=== PATIENT | male | born 1955 | race American Indian/Alaskan Native ===

== ENCOUNTER 2018-10-19 06:56 | Emergency (ER) | payer MEDICAID ==
[2018-10-19 07:22] VITALS: O2SAT 98
[2018-10-19 08:20] LABS: BASO # 0.1 K/uL (0.0-0.2); BASO % 1.1 % (0.0-2.0); EOS # 0.1 K/uL (0.0-0.7); EOS % 1.5 % (0.0-4.0); LYMPH # 3.5 K/uL (1.0-4.3); LYMPH % 37.8 % (20.0-40.0); MEAN CELL VOLUME 90.9 fl (80.0-94.0); MEAN CORPUSCULAR HEMOGLOBIN 30.2 pg (27.0-31.0); MEAN CORPUSCULAR HGB CONC 33.3 g/dL (33.0-37.0); MONO # 0.7 K/uL (0.0-0.8); MONO % 7.3 % (0.0-10.0); NEUT # 4.8 K/uL (1.8-7.0); NEUT % 52.3 % (50.0-75.0); NRBC % 0.1 % (0.0-0.0); RBC 4.97 Mil/uL (4.40-5.90); RED CELL DISTRIBUTION WIDTH 14.9 % (11.5-14.5); WHITE BLOOD COUNT 9.3 K/uL (4.8-10.8)
--- NOTE | 2018-10-19 08:20 | ED PDOC ---
Lower Extremity Pain/Injury Time Seen by Provider: 10/19/18 07:09 Chief Complaint (Nursing): Lower Extremity Problem/Injury Chief Complaint (Provider): Right Foot Swelling History Per: Patient History/Exam Limitations: no limitations Onset/Duration Of Symptoms: Days Current Symptoms Are (Timing): Still Present Additional Complaint(s): 62 year male who is HIV positive presents to the ED for an evaluation of right foot swelling and pain. 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 He states he soaked his foot in Epsom salt without any relief. De nies fever, chills, nausea or vomiting. PMD: Dr. Moreno Past Medical History Reviewed: Historical Data, Nursing Documentation, Vital Signs Vital Signs: Last Vital Signs Temp Pulse 82 10/19/18 07:14 Resp BP 161/102 H 10/19/18 07:14 Pulse Ox 98 10/19/18 07:14 - Medical History PMH: Back Problems, CAD, Depression, Deep Vein Thrombosis, HIV, HTN, Hypercholesterolemia, Hyperlipidemia, Peripheral Edema (poor circulation) Denies: Chronic Kidney Disease - Surgical History Surgical History: Coronary Stent Other surgeries: 2nd digit amputation - Family History Family History: States: Unknown Family Hx - Social History Current smoker - smoking cessation education provided: Yes (Light Smoker < 10 Cigarettes Daily) Alcohol: None Drugs: Denies - Immunization History Hx Tetanus Toxoid Vaccination: No Hx Influenza Vaccination: No Hx Pneumococcal Vaccination: No - Home Medications Home Medications: Ambulatory Orders Medication Instructions Recorded Atazanavir Sulfate [Reyataz] 300 mg PO DAILY 08/28/13 Clopidogrel Hydrogen Sulfate 75 mg PO DAILY 08/28/13 [Plavix] Emtricitabine/Tenofovir Diso 200 - 300 mg PO DAILY 08/28/13 [Truvada 200 MG-300 MG] Mirtazapine [Remeron] 15 mg PO HS 08/28/13 Oxycodone Hydrochloride 30 mg PO TID 08/28/13 Ritonavir [Norvir] 100 mg PO DAILY 08/28/13 Vitamin B Complex & Vitamin C 1 tab PO QPM 08/28/13 [Strovite] amLODIPine [Norvasc] 5 mg PO DAILY 08/28/13 Acetaminophen/Oxycodone Hydr 1 tab PO Q6H PRN #8 tab 06/30/14 [Percocet 325 mg-5 mg] Cyclobenzaprine HCl [Flexeril] 10 mg PO HS #7 tab 06/30/14 Alprazolam [Xanax] 1 mg PO BID 11/07/14 Patient's Own Control Med 20 mg PO PRN 11/07/14 [Patient's Own Control Medication] Sulindac 200 mg PO DAILY 11/07/14 Sulfamethoxazole/Trimethopri 1 tab PO BID #20 tab 06/03/15 [Bactrim Ds 800 mg-160 mg] Amoxicillin/Clavulanate [Augmentin 1 tab PO BID #20 tab 10/19/18 875 MG-125 MG] Naproxen [Naprosyn] 500 mg PO BID PRN #20 tablet 10/19/18 - Allergies Allergies/Adverse Reactions: Allergies Allergy/AdvReac Type Severity Reaction Status Date / Time No Known Allergies Allergy Unverified 08/28/13 11:05 Review of Systems ROS Statement: Except As Marked, All Systems Reviewed And Found Negative Constitutional: Negative for: Fever, Chills Gastrointestinal: Negative for: Nausea, Vomiting, Abdominal Pain Musculoskeletal: Positive for: Foot Pain (right) Physical Exam - Reviewed Nursing Documentation Reviewed: Yes Vital Signs Reviewed: Yes - Physical Exam Appears: Positive for: Well, Non-toxic, No Acute Distress Head Exam: Positive for: ATRAUMATIC, NORMAL INSPECTION, NORMOCEPHALIC Skin: Positive for: Normal Color, Warm, Dry. Negative for: Rash Eye Exam: Positive for: EOMI, Normal appearance, PERRL Neck: Positive for: Normal, Painless ROM, Supple. Negative for: Decreased ROM Cardiovascular/Chest: Positive for: Regular Rate, Rhythm. Negative for: Murmur Respiratory: Positive for: Normal Breath Sounds. Negative for: Decreased Breath Sounds, Wheezing, Respiratory Distress Extremity: Positive for: Normal ROM, Pedal Edema (Peripheral ), Deformity (after amputation of 2nd right digit), Other (driness on right calf). Negative for: Calf Tenderness Neurologic/Psych: Positive for: Alert, Oriented (x3). Negative for: Motor/Sensory Deficits - Laboratory Results Result Diagrams: 10/19/18 08:11 10/19/18 08:11 - ECG O2 Sat by Pulse Oximetry: 98 (RA) Pulse Ox Interpretation: Normal Medical Decision Making Medical Decision Making: Time: 725 Initial Plan: CMP CBC w/ Differential Erythrocyte sedimentation rate Right Foot 3 Views [RAD] IV insertion Reevaluation [id number] Call was placed to drill press hand to discuss case --- -- Scribe Attestation: Documented by Bhupinder Banegas, acting as a scribe for Nichol Chand MD. Provider Scribe Attestation: All medical record entries made by the Scribe were at my direction and personally dictated by me. I have reviewed the chart and agree that the record accurately reflects my personal performance of the history, physical exam, medical decision making, and the department course for this patient. I have also personally directed, reviewed, and agree with the discharge instructions and disposition. 9.45a - patient seen by podiatry. Advised outpatient followup Disposition - Clinical Impression Clinical Impression: Toe infection - Patient ED Disposition Is Patient to be Admitted: No Doctor Will See Patient In The: Office Counseled Patient/Family Regarding: Diagnosis, Need For Followup, Rx Given - Disposition Referrals: Bakari Clark DPM [[facility]] - Disposition: Routine/Home Disposition Time: 09:45 Condition: STABLE Prescriptions: Amoxicillin/Clavulanate [Augmentin 875 MG-125 MG] 1 tab PO BID #20 tab Naproxen [Naprosyn] 500 mg PO BID PRN #20 tablet PRN Reason: Pain, Moderate (4-7) Instructions: Cellulitis (Skin Infection), Adult (DC) Forms: [employer] ([place]an) - POA Present On Arrival: None
[2018-10-19 08:34] LABS: ALB/GLOB RATIO 1.1 (1.0-2.1); ALBUMIN 4.3 g/dL (3.5-5.0); ALT/SGPT 31 U/L (21-72); AST/SGOT 26 U/L (17-59); BLOOD UREA NITROGEN 10 mg/dl (9-20); CALCIUM 9.3 mg/dL (8.4-10.2); GFR NON-AFRICAN AMERICAN > 60
--- NOTE | 2018-10-19 09:24 | CP.PCM.CON ---
History of Present Illness - History of Present Illness History of Present Illness: Podiatry consult note fro Dr. Perez 62 year male patient who is HIV positive presents to the ED for an evaluation of right foot swelling and pain, which started about 1 week ago. He states he soaked his foot in Epsom salt without any relief. Denies fever, chills, nausea or vomiting. Patient states he has hx of lower extremity infection, which is how he lost his second digit to the right. Patient states his Systems Admin is Dr. Bakari Clark. PMD: Dr. Moreno PMH: Back Problems, CAD, Depression, Deep Vein Thrombosis, HIV, HTN, Hypercholesterolemia, Hyperlipidemia, Peripheral Edema (poor circulation) Denies: Chronic Kidney Disease Surgical History: Coronary Stent, 2nd digit amputation Social History: Current smoker Review of Systems - Review of Systems All systems: reviewed and no additional remarkable complaints except Review of Systems: As per HPI Past Patient History - Past Medical History & Family History Past Medical History?: Yes - Past Social History Alcohol: None Drugs: Denies - CARDIAC Hx Hypercholesterolemia: Yes Hx Hypertension: Yes Hx Peripheral Edema: Yes (poor circulation) - PULMONARY Hx Respiratory Disorders: No - NEUROLOGICAL Hx Neurological Disorder: No - HEENT Hx HEENT Problems: No - RENAL Hx Chronic Kidney Disease: No - ENDOCRINE/METABOLIC Hx Endocrine Disorders: No - HEMATOLOGICAL/ONCOLOGICAL Hx Human Immunodeficiency Virus (HIV): Yes - INTEGUMENTARY Hx Dermatological Problems: No - MUSCULOSKELETAL/RHEUMATOLOGICAL Hx Back Pain: Yes Hx Falls: No - GASTROINTESTINAL Hx Gastrointestinal Disorders: No - GENITOURINARY/GYNECOLOGICAL Hx Genitourinary Disorders: No - PSYCHIATRIC Hx Depression: Yes - SURGICAL HISTORY Hx Coronary Stent: Yes - ANESTHESIA Hx Anesthesia: Yes Meds Home Medications: Home Medication List Medication Instructions Recorded Confirmed Type Amoxicillin/Clavulanate [Augmentin 1 tab PO BID #20 tab 10/19/18 Rx 875 MG-125 MG] Naproxen [Naprosyn] 500 mg PO BID PRN #20 tablet 10/19/18 Rx Allergies/Adverse Reactions: Allergies Allergy/AdvReac Type Severity Reaction Status Date / Time No Known Allergies Allergy Unverified 08/28/13 11:05 Physical Exam - Constitutional Appears: Well, Non-toxic, No Acute Distress - Head Exam Head Exam: ATRAUMATIC, NORMOCEPHALIC - Extremities Exam Additional comments: Right Lower Extremity VASC: DP and PT palpable, CFT less than 3 x seconds X 4, TG warm to warm, lateral aspect of foot, positive +1 pitting edema noted to the dorsum of the right foot DERM: positive edema and erythema noted to the dorso-lateral aspect of the right foot, no open lesions, no clinical signs of infection, no malodor, no IDM, plantar xerosis noted, NEURO: grossly intact ORTHO: amputation noted of the 2nd digit, pain on palpation to the 5th digit, and pain with range of motion of the 5th MPTJ, no posterior calf pain, MSK 5/5 - Neurological Exam Neurological exam: Alert, Oriented x3 - Psychiatric Exam Psychiatric exam: Normal Affect, Normal Mood Results - Vital Signs Recent Vital Signs: Last Vital Signs Temp Pulse 82 10/19/18 07:14 Resp BP 161/102 H 10/19/18 07:14 Pulse Ox 98 10/19/18 08:59 - Labs Result Diagrams: 10/19/18 08:11 10/19/18 08:11 Labs: Laboratory Results - last 24 hr 10/19/18 10/19/18 08:11 08:11 WBC 9.3 RBC 4.97 Hgb 15.0 Hct 45.1 MCV 90.9 D MCH 30.2 MCHC 33.3 RDW 14.9 H Plt Count 253 MPV 8.0 Neut % (Auto) 52.3 Lymph % (Auto) 37.8 Carter % (Auto) 7.3 Eos % (Auto) 1.5 Baso % (Auto) 1.1 Neut # (Auto) 4.8 Lymph # (Auto) 3.5 Carter # (Auto) 0.7 Eos # (Auto) 0.1 Baso # (Auto) 0.1 Sodium 137 Potassium 4.1 Chloride 104 Carbon Dioxide 21 L Anion Gap 16 BUN 10 Creatinine 1.1 Est GFR ( Amer) > 60 Est GFR (Non-Af Amer) > 60 Random Glucose 110 Calcium 9.3 Total Bilirubin 0.8 AST 26 ALT 31 Alkaline Phosphatase 165 H Total Protein 8.4 H Albumin 4.3 Globulin 4.1 H Albumin/Globulin Ratio 1.1 Assessment & Plan - Assessment and Plan (Free Text) Assessment: 62 y/o male patient seen and evaluated for pain to the right 5th digit Plan: Patient seen and evaluated Plan discussed with Dr. Perez Chart, labs and vitals reviewed- afebrile, absent leukocytosis Ordered right foot x-ray: edematous changes seen affecting the right small digit, no obvious bony changes, interval degeneration fusion of the 1st IPJ and MTPJ, prior amputation of the 2nd metatarsal Patient discharged on PO Abx at this time: Augmentin 875 mg 1 tab PO BID 10 days, Naprosyn 500 mg for pain Patient to follow up with his Systems Admin Thank you for the Podiatry consult - Date & Time Date: 10/22/18 Time: 07:34
[2018-10-19 10:24] VITALS: BP 120/70; PULSE 76; RESP 20; TEMP 98
--- NOTE | 2018-10-19 10:56 | RAD ---
Date of service: 10/19/2018 PROCEDURE: Right Foot Radiographs. HISTORY: pain and swelling 5th toe for 1 week COMPARISON: Right foot radiographs 04/10/2012. FINDINGS: BONES: Prior 2nd digit amputation as well as partial amputation of the 2nd metatarsal bone reiterated. No acute fracture, subluxation or dislocation appreciated at this time. Diffuse osteopenia suggests osteoporosis, increased in the interval. JOINTS: There is now apparent degenerative fusion of the interphalangeal joint of the great toe with advanced degenerative changes identified at the 1st metatarsophalangeal once again. Limited degenerative changes otherwise diffusely noted throughout the right foot joints. SOFT TISSUES: Mild soft tissue edema is seen surrounding the 5th digit without bony destructive changes that would suggest osteomyelitis. Clinically correlate further. No emphysema soft tissue changes are related. Nonspecific interval deformity of the proximal phalanx right 3rd digit possibly from bone infarction as appears increased in density. The small size of this bone does not appear significantly changed compared prior MRI right foot 11/20/2012. Surgical clips are again seen at the distal leg and ankle soft tissues medially. OTHER FINDINGS: None. IMPRESSION: Edematous changes seen the soft tissues affecting the right small digit however no obvious bony changes to suggest osteomyelitis at this time. MRI can be performed for added characterization if clinically warranted. 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 Prior partial amputation 2nd metatarsal bone and 2nd digit amputation evident once again. 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
== END 2018-10-19 10:24 | disposition home or self-care (01) ==
LOC: H.ER 06:56
DX: L08.9 Local infection of the skin and subcutaneous tissue, unspecified (principal); E78.00 Pure hypercholesterolemia, unspecified; I25.10 Atherosclerotic heart disease of native coronary artery without angina pectoris; Z21 Asymptomatic human immunodeficiency virus [HIV] infection status; Z86.718 Personal history of other venous thrombosis and embolism; M19.071 Primary osteoarthritis, right ankle and foot; Z95.5 Presence of coronary angioplasty implant and graft; I10 Essential (primary) hypertension